=== PATIENT | male | born 1960 | race Caucasian/White ===

== ENCOUNTER 2023-01-24 21:19 | Emergency (ER) | payer OTHER, SELFPAY ==
[2023-01-24 21:19] VITALS: BP 127/65; PULSE 82; RESP 16; TEMP 36.8; O2SAT 94; BMI 25.4
[2023-01-24 21:27] LABS: Microscopic, Urine URINE MICROSCOPIC (MICROSCOPIC)
[2023-01-24 22:15] LABS: Appearance,Urine CLEAR (Clear); Bilirubin,Urine Negative (Negative); Blood, Urine Negative (Negative); Color,Urine YELLOW (Yellow); Glucose,Urine (UA) Negative (Negative); Ketones,Urine Negative (Negative); Leukocyte Esterase,Urine Negative (Negative); Nitrate,Urine Negative (Negative); Protein,Urine Negative (Negative); Specific Gravity, Urine <= 1.005 (1.005-1.030)
[2023-01-24 22:48] LABS: Squamous Epithelial Cell,Urine Occasional #/hpf (0-5)
--- NOTE | 2023-01-25 00:04 | HMH.EDGENADL ---
Discharge Plan Disposition Patient Disposition: Home, Self-Care Condition: Good Referrals Follow up/Referrals: Provider,Referral, [Primary Care Provider] - See instructions Activity Restrictions/Add. Instructions Additional Instructions/Restrictions: Recommend establishing care with a primary care doctor. Recommend discontinuing alcohol use as it is likely contributing to your fluid buildup. Please return to the emergency department if you develop any new or worsening symptoms or become concerned for your health. Clinical Impressions Clinical Impression: Bilateral edema of lower extremity, Cirrhosis of liver, Cytopenia, Alcohol abuse Discharge ED Provider: Zion Lambert Adult HPI General Chief complaint: Extremity Injury, Lower Stated complaint: bilateral lower edema Time Seen by Provider: 01/24/23 23:31 Mode of Arrival: EMS Source of Information: Patient Limitations: No Limitations Description of Symptoms (Recalled from ER Triage Doc. by RN): pt c/o bilateral lower extermity edema. pt states he was released from a hospital recently for same problem. History of Present Illness HPI narrative: 62-year-old male, reported history of PTSD, COPD still smoking, cirrhosis still drinking, homelessness, ambulatory difficulty at baseline secondary to prior injury presents with lower extremity swelling. He reports it has been worse since yesterday. Bilateral in nature. Patient reports that he also has some intermittent bleeding from spots on his legs that he has been scratching. Patient ports that he was most recently in a hospital in [place] where they had me strapped down to the bed. Patient reports no history of paracentesis. Reports intermittent use of Lasix but reports that he is not prescribed any. Only medication he uses his inhalers. Reports no fevers chills or infectious symptoms. Patient is traveling from [place] to [place], was recently in [place] and then traveled up north again to [facility]. Patient reports concerned that his ammonia is elevated. Patient has been drinking beer all day, last drink I had was in the parking lot. Related Data Allergies Allergy/AdvReac Type Severity Reaction Status Date / Time No Known Allergies Allergy Verified 01/24/23 21:22 [facility] Disclaimer: The information contained in this section may have been updated after the patient was seen, as this information can be updated by other users. Social History Smoking Status: Current every day smoker alcohol intake: current current occupational status: previously employed Travel in the last 8 weeks: None ROS Obtained: Yes All systems reviewed & no additional complaints except as documented Physical Exam General General appearance: alert and appears intoxicated (Mildly slowed slurred speech) Head Head exam: atraumatic and normocephalic Eye Eye exam: Present normal appearance, PERRL and EOMI ENT ENT exam: Present normal oropharynx and normal external ear exam Neck Neck exam: Present normal inspection and full ROM Chest Chest inspection: Present normal inspection and symmetric chest wall rise; Absent tenderness Respiratory Respiratory exam: Present normal lung sounds bilaterally; Absent respiratory distress Cardiovascular Cardiovascular exam: Present regular rate and normal rhythm Abdominal Exam Abdominal exam: Present soft; Absent distention, tenderness or guarding Extremities Exam Extremities exam: Present other (Bilateral lower extremity pitting pedal and pretibial edema, 2+. Excoriations in the popliteal area, no obvious infection.) Back Exam Back exam: Present normal inspection; Absent tenderness Neurological Exam Neurological exam: Present alert and oriented X3 (Slightly slowed/slurred speech, though patient oriented and answers all questions.) Psychiatric Psychiatric exam: Present normal affect and normal mood; Absent homicidal ideation or suicidal ideation Skin Skin exam: Present warm,
--- NOTE | 2023-01-25 00:10 | XR_ITS ---
PROCEDURE INFORMATION: Exam: XR Chest Exam date and time: 01/25/2023 12:31 AM Age: 62 years old Clinical indication: Other: Edema TECHNIQUE: Imaging protocol: Radiologic exam of the chest. Views: 1 view. COMPARISON: No relevant prior studies available. FINDINGS: Lungs: Unremarkable. No consolidation. Pleural spaces: Unremarkable. No pleural effusion. No pneumothorax. Heart/Mediastinum: Unremarkable. No cardiomegaly. Bones/joints: Unremarkable. IMPRESSION: No acute findings.
[2023-01-25 00:15] VITALS: BP 130/73; PULSE 83; O2SAT 96
[2023-01-25 00:30] VITALS: BP 125/69; PULSE 79; O2SAT 96
[2023-01-25 01:03] LABS: Basophils % 0.7 % (0.1-2.0); Eosinophils # 0.1 K/mm3 (0.0-0.4); Eosinophils % 2.5 % (0.1-12.0); Hematocrit 27.6 % (42.0-52.0); Hemoglobin 8.9 g/dL (14.1-18.0); Lymphocytes # 1.2 K/mm3 (0.7-4.5); Lymphocytes % 46.7 % (10-50); Mean Corpuscular HGB Conc 32.4 g/dL (31.8-35.4); Mean Corpuscular Hemoglobin 28.1 pg (27.0-31.2); Mean Corpuscular Volume 86.8 fl (80-94); Mean Platelet Volume 7.6 fl (7.4-10.4); Monocytes # 0.2 K/mm3 (0.1-1.0); Monocytes % 6.5 % (1.7-9.3); Neutrophils # 1.2 K/mm3 (1.8-7.8); Neutrophils % 43.7 % (37.0-80.0); Red Blood Count 3.18 M/mm3 (4.60-6.20); Red Cell Distribution Width 21.4 % (11.5-17.5); White Blood Count 2.6 K/mm3 (4.8-10.8)
[2023-01-25 01:05] LABS: Alanine Aminotransferase 24 U/L (12-78); Albumin Level 3.2 g/dl (3.5-5.0); Albumin/Globulin Ratio 0.9 (1.1-1.8); Alkaline Phosphatase 129 U/L (38-126); Anion Gap 11.6 mEq/L (5-15); Aspartate Amino Transferase 53 U/L (17-59); Blood Urea Nitrogen 4 mg/dl (9-20); Calcium 8.1 mg/dl (8.4-10.2); Carbon Dioxide 27 mmol/L (22.0-30.0); Chloride 106 mmol/L (98-107); Creatinine Clearance Estimated 79 mL/min (50-200); Estimated Glomerular Filt Rate 98 ml/min (>60); GFR (African American) 119 ML/MIN (>60); Globulin 3.6 g/dL (1.3-3.2); Glucose 154 mg/dl (74-100); Potassium 3.6 mmoL/L (3.5-5.1); Sodium 141 mmol/L (136-145); Total Protein,Serum 6.8 g/dl (6.3-8.2)
[2023-01-25 01:15] LABS: NT Pro Brain Natriuretic Pep. 99.2 pg/mL (0-125)
[2023-01-25 01:30] VITALS: BP 110/63; PULSE 84; O2SAT 92
[2023-01-25 01:43] LABS: Platelet Count 50 K/mm3 (142-424)
[2023-01-25 02:32] VITALS: BP 107/67; PULSE 81; RESP 16; TEMP 36.8; O2SAT 96
== END 2023-01-25 02:54 | disposition home or self-care (01) ==
PROVIDERS: Emergency Medicine; Emergency Provider Emergency Medicine
DX: K74.60 Unspecified cirrhosis of liver (principal); R60.9 Edema, unspecified; J44.9 Chronic obstructive pulmonary disease, unspecified; F43.10 Post-traumatic stress disorder, unspecified; F17.200 Nicotine dependence, unspecified, uncomplicated; Z59.00 Homelessness unspecified; D61.818 Other pancytopenia
CPT/HCPCS: 71045; 80053; 81001; 83880; 85025; 99285